=== PATIENT | female | born 1985 | race African-American/Black ===

== ENCOUNTER 2019-10-06 06:17 | Inpatient (IN) | payer OTHER ==
[2019-10-06] MEDS ORDERED: ELECTROLYTE-148 SOLN 500 ML IV SCH (07:00)
[2019-10-06] MEDS ORDERED: CITRIC ACID/SODIUM CITRATE 30 ML UNIT-DOSE CUP PO ONE (07:00)
[2019-10-06 07:16] VITALS: BMI 34.1
[2019-10-06] MEDS ORDERED: PROPOFOL 20 ML ONE (07:54)
[2019-10-06] MEDS ORDERED: morphine SULFATE/PF 0.5 MG/ML (2cc Syringe - QUVA) ONE (07:54)
[2019-10-06] MEDS ORDERED: ceFAZolin SODIUM 1 GM VIAL ONE (08:26)
[2019-10-06] MEDS ORDERED: ELECTROLYTE-148 SOLN 500 ML IV ONE (09:28)
[2019-10-06] MEDS ORDERED: OXYTOCIN 20 UNITS in 0.9% NS 20 UNIT/1,000 ML INFUS.BAG IV ONE (09:28)
[2019-10-06] MEDS ORDERED: ELECTROLYTE-148 SOLN 1,000 ML IV SCH (09:30)
[2019-10-06] MEDS: OXYTOCIN 20 UNITS in 0.9% NS 20 UNIT/1,000 ML INFUS.BAG IV SCH (09:30)
[2019-10-06] MEDS ORDERED: ONDANSETRON 4 MG/2 ML VIAL ONE (09:33)
[2019-10-06] MEDS ORDERED: DEXAMETHASONE SOD PHOSPHATE 4 MG/1 ML VIAL ONE (09:34)
[2019-10-06] MEDS ORDERED: OXYTOCIN 10 UNITS/ML VIAL ONE (09:34)
--- NOTE | 2019-10-06 09:34 | HP ---
Past Medical History - Admission Chief Complaint: repeat c s x 3 History of Present Illness: none History Source: Patient Limitations to Obtaining History: No Limitations - Past Medical History MANAGER BAR: No: Alzheimer's, CVA, Dementia, Migraine, Multiple Sclerosis, Peripheral Neuropathy, Parkinson's, Seizure, Syncope, TIA, Vertigo, Other Cardiovascular: No: AFIB, Aneurysm, Aortic Insufficiency, Aortic Stenosis, CAD, CHF, Deep Vein Thrombosis, HTN, Hyperlipdemia, [place], Mitral Insufficiency, Mitral Stenosis, Murmur, Pulmonary Hypertension, Other Pulmonary: No: Asthma, Bronchitis, Cancer, COPD, O2 Dependent, Pneumonia, Previously Intubated, Pulmonary Embolus, Pulmonary Fibrosis, Sleep Apnea, Other Gastrointestinal: No: Ascites, Cancer, Constipation, Crohn's Disease, Diverticulitis, Diverticulosis, Esophageal Varices, Gastritis, GERD, GI Bleed, Hemorrhoids, Hiatal Hernia, Inflamatory Bowel Disease, Irritable Bowel Disease, Pancreatitis, Peptic Ulcer Disease, Ulcerative Colitis, Other Hepatobiliary: No: Cirrhosis, Cholelithiasis, Cholecystitis, Choledocholithiasis, Hepatitis A, Hepatitis B, Hepatitis C, Other Renal/: No: Renal Failure, Renal Inusuff, BPH, Cancer, Hematuria, Hemodialysis, Neurogenic Bladder, Renal Calculi, UTI, Other Reproductive: No: Ectopic , Endometriosis, Fibroids, PID, Polycystic Ovary Syndrome, Postmenopausal, Other ...: 3 ...Para: 2 ...Term: 2 ...Living Children: 2 ...EDC by Rebeka: 10/13/19 Heme/Onc: No: Anemia, B12 Deficiency, Bleeding Disorder, Cancer, Current Chemotherapy, Current Radiation Therapy, Hemochromatosis, Hypercoaguable State, Myeloproliferative Synd, Sickle Cell Disease, Sickle Cell Trait, Thrombocytopenia, Other Infectious Disease: No: AIDS, C-Diff, Herpes Zoster, HIV, MRSA, STD's, Tuberculosis, VREF, Other Psych: No: Addictions, Anxiety, Bipolar, Depression, Panic, Psychosis, Sc hizophrenia, Other Musculoskeletal: No: Bursitis, Chronic low back pain, Hemiparesis, Hemiplegia, Osteoarthritis, Paraplegia, Other Rheumatology: No: Fibromyalgia, Gout, Lupus, Rheumatoid Arthritis, Sarcoidosis, Vasculitis, Other ENT: No: Allergic Rhinitis, Sinusitis, Other Endocrine: No: Carnation's Disease, Randlett's Disease, Diabetes Insipidus, Diabetes Mellitus, Hyperparathyroidism, Hyperthyroidism, Hypothyroidism, Osteopenia, SIADH, Other Dermatology: No: Basal Cell, Cellulitis, Eczema, Melanoma, Psoriasis, Squamous Cell, Other - Past Surgical History Past Surgical History: Yes: Hx Myomectomy: No Hx Transabdominal Cerclage: No - Advance Directives Advance Directives: Yes: Living Will - Smoking History Smoking history: Never smoked Have you smoked in the past 12 months: No - Alcohol/Substance Use Hx Alcohol Use: No History of Substance Use: reports: None - Social History Usual Living Arrangement: Yes: With Significant Other Do you think of yourself as: Straight/Heterosexual ADL: Independent History of Recent Travel: No Home Medications - Allergies Allergies/Adverse Reactions: Allergies Allergy/AdvReac Type Severity Reaction Status Date / Time No Known Allergies Allergy Verified 10/06/19 06:49 - Home Medications Home Medications: Ambulatory Orders Albuterol Sulfate [Albuterol Sulfate Hfa] 8.5 gm IH PRN PRN 10/06/19 Ferrous Sulfate [Feosol] 325 mg PO DAILY 10/06/19 Pnv No.95/Ferrous Fum/Folic AC [ Vitamin Tablet] 1 each PO DAILY 10/06/19 Family Medical History Family History: Denies Review of Systems - Review of Systems Constitutional: reports: No Symptoms Eyes: reports: No Symptoms HENT: reports: No Symptoms Neck: reports: No Symptoms Cardiovascular: reports: No Symptoms Respiratory: reports: No Symptoms Gastrointestinal: reports: No Symptoms Genitourinary: reports: No Symptoms Breasts: reports: No Symptoms Reported Musculoskeletal: reports: No Symptoms Integumentary: reports: No Symptoms Neurological: reports: No Symptoms Endocrine: reports: No Symptoms Hematology/Lymphatic: reports: No Symptoms Psychiatric: reports: No Symptoms Physical Exam - Maternity Vital Signs: Vital Signs Temperature 99.2 F 10/06/19 07:09 Pulse Rate 88 10/06/19 07:09 Respiratory Rate 18 10/06/19 07:09 Blood Pressure 114/65 10/06/19 07:09 O2 Sat by Pulse Oximetry (%) Constitutional: Yes: Well Nourished, No Distress, Calm Eyes: Yes: WNL, Conjunctiva Clear, EOM Intact HENT: Yes: WNL, Atraumatic, Normocephalic Neck: Yes: WNL, Supple, Trachea Midline Cardiovascular: Yes: WNL, Regular Rate and Rhythm Lungs: Clear to auscultation Breast(s): Yes: WNL - Abdominal Exam/OB Fundal Height: 40 Number of Fetuses: Single Presentation: Vertex Contractions: Yes Regularity: Irregular Intensity: Unaware Monitor Mode: External Heart Rate Location: [facility] Accelerations: Uniform Decelerations: None - Vaginal Exam/OB Vaginal Bleeding: No Speculum Exam: No Dilatation (cm): 1 Effacement (%): 50 Amniotic Membrane Status: Intact Presentation: Vertex/Position Station: -3 - Physical Exam Musculoskeletal: Yes: WNL Extremities: Yes: WNL Edema: Yes Edema: LUE: 1+, RUE: 1+, LLE: 1+, RLE: 1+ Integumentary: Yes: WNL Deep Tendon Reflex Grade: Normal +2 ...Motor Strength: WNL Psychiatric: Yes: WNL, Alert, Oriented Hemorrhage Risk Assessment - Risk Factors Medium Risk Factors: Yes: Prior , uterine surgery,or multiple laparotomies High Risk Factors: Yes: None Risk Score: 1 Risk Level: Medium Risk Assessment/Plan for repeat c s x 3,
[2019-10-06] MEDS ORDERED: morphine SULFATE/PF 0.5 MG/ML (2cc Syringe - QUVA) EP ONE (09:38)
[2019-10-06] MEDS ORDERED: METHYLERGONOVINE MALEATE 0.2 MG/1 ML AMP IM PRN (09:39)
[2019-10-06] MEDS ORDERED: IBUPROFEN 800 MG/8 ML IJ IVPB PRN (09:39)
[2019-10-06] MEDS ORDERED: oxyCODONE HCL 5 MG TABLET PO PRN ×2 (09:39)
[2019-10-06] MEDS ORDERED: DEXAMETHASONE SOD PHOSPHATE 4 MG/1 ML VIAL IVPUSH ONE (09:39)
--- NOTE | 2019-10-06 09:39 | OP ---
Operative Note - Note: Operative Date: 10/06/19 Pre-Operative Diagnosis: repeat c s x 3 Operation: repeat lt c s x 3 Findings: no adhesions Post-Operative Diagnosis: Same as Pre-op Surgeon: Ortiz Asher Stem Assembler: Jerson Dorado Anesthesiologist/DRAMATIC READER: Jeanette Camacho MD Anesthesia: Spinal Estimated Blood Loss (mls): 600 (no complications ) Operative Report Dictated: Yes
[2019-10-06] MEDS: ONDANSETRON 4 MG/2 ML VIAL IVPUSH PRN ×2 (09:40→15:53)
[2019-10-06] MEDS ORDERED: METOCLOPRAMIDE HCL INJECTION 10 MG/2 ML VIAL ONE (10:32)
[2019-10-06] MEDS ORDERED: METOCLOPRAMIDE HCL INJECTION 10 MG/2 ML VIAL IVPUSH ONE (10:37)
[2019-10-06] MEDS: PRENATAL VITAMINS W/ FOLIC ACID TABLET (FP) PO SCH (12:25)
[2019-10-06] MEDS ORDERED: SENNOSIDES/DOCUSATE COMBO (SENNA PLUS) TABLET (UD) PO PRN (22:00)
--- NOTE | 2019-10-07 08:29 | PN ---
Progress Note (short form) - Note Progress Note: Anesthesia postop note 33 y/o F s/p spinal anesthesia/ duramorph for repeat section. POD#1, vss, aaox3, pain well controlled, no complaints. No anesthesia complications.
[2019-10-07 09:07] LABS: BASO % 0.3 % (0-2.0); HEMATOCRIT 33.4 % (32.4-45.2); HEMOGLOBIN 11.1 GM/dL (10.7-15.3); LYMPH % 11.4 % (8-40); MCH 31.1 pg (25.7-33.7); MCHC 33.2 g/dl (32.0-36.0); MEAN CELL VOLUME 93.6 fl (80-96); MEAN PLT VOLUME 10.4 fl (7.5-11.1); MONO % 8.4 % (3.8-10.2); NEUT % 78.9 % (42.8-82.8); PLATELET COUNT 143 K/MM3 (134-434); RBC 3.56 M/mm3 (3.60-5.2); RDW 14.6 % (11.6-15.6); WHITE BLOOD COUNT 10.9 K/mm3 (4.0-10.0)
[2019-10-07] MEDS: PRENATAL VITAMINS W/ FOLIC ACID TABLET (FP) PO SCH (09:38)
[2019-10-07] MEDS ORDERED: BISACODYL 10 MG SUPP.RECT RC PRN (09:39)
[2019-10-07] MEDS: ACETAMINOPHEN 325 MG TABLET (FP) PO PRN ×2 (09:41→15:01)
[2019-10-07] MEDS: IBUPROFEN 600 MG TABLET (FP) PO PRN ×2 (09:42→15:00)
--- NOTE | 2019-10-07 10:17 | PN ---
Post Progress Note Post Day: 1 Type of Delivery: Repeat C/S Vital Signs: Vital Signs Temperature 98.2 F 10/07/19 05:58 Pulse Rate 90 10/07/19 05:58 Respiratory Rate 20 10/07/19 05:59 Blood Pressure 109/69 10/07/19 05:58 O2 Sat by Pulse Oximetry (%) 97 10/06/19 14:00 Breast Exam: Yes: Soft Uterus: Yes: Fundus Firm, Fundus below umbilicus, Non-tender Incision: Yes: Dressing dry and intact, Sutures intact Abdomen/GI: Yes: Abdomen soft, Passing flatus, Tolerating PO Lochia: Yes: Serosa Lochia, amount: Small Extremities: Yes: Calves non-tender Perineum: Yes: Intact Activity: Ambulating (doing well, dc pt home tomorrow ) - Labs Labs: CBC WBC 10.9 K/mm3 (4.0-10.0) H 10/07/19 07:55 RBC 3.56 M/mm3 (3.60-5.2) L 10/07/19 07:55 Hgb 11.1 GM/dL (10.7-15.3) 10/07/19 07:55 Hct 33.4 % (32.4-45.2) 10/07/19 07:55 MCV 93.6 fl (80-96) 10/07/19 07:55 MCH 31.1 pg (25.7-33.7) 10/07/19 07:55 MCHC 33.2 g/dl (32.0-36.0) 10/07/19 07:55 RDW 14.6 % (11.6-15.6) 10/07/19 07:55 Plt Count 143 K/MM3 (134-434) 10/07/19 07:55 MPV 10.4 fl (7.5-11.1) 10/07/19 07:55 Absolute Neuts (auto) 8.6 K/mm3 (1.5-8.0) H 10/07/19 07:55 Neutrophils % 78.9 % (42.8-82.8) 10/07/19 07:55 Lymphocytes % 11.4 % (8-40) D 10/07/19 07:55 Monocytes % 8.4 % (3.8-10.2) 10/07/19 07:55 Eosinophils % 1.0 % (0-4.5) 10/07/19 07:55 Basophils % 0.3 % (0-2.0) 10/07/19 07:55 Nucleated RBC % 0 % (0-0) 10/07/19 07:55
--- NOTE | 2019-10-07 10:20 | DS ---
Physical Exam-POURER OFF Vital Signs: Vital Signs Temperature 98.2 F 10/07/19 05:58 Pulse Rate 90 10/07/19 05:58 Respiratory Rate 20 10/07/19 05:59 Blood Pressure 109/69 10/07/19 05:58 O2 Sat by Pulse Oximetry (%) 97 10/06/19 14:00 Constitutional: Yes: Well Nourished, No Distress, Calm Eyes: Yes: WNL, Conjunctiva Clear, EOM Intact HENT: Yes: WNL, Atraumatic, Normocephalic Neck: Yes: WNL, Supple, Trachea Midline Cardiovascular: Yes: WNL, Regular Rate and Rhythm Respiratory: Yes: WNL, Regular, CTA Bilaterally Gastrointestinal: Yes: WNL, Normal Bowel Sounds, Soft ...Rectal Exam: Yes: WNL Renal/: Yes: WNL Pelvis: Yes: WNL External Genitalia: Yes: Normal Internal Exam Deferred: Yes Vaginal Exam: Yes: Normal Cervix: Yes: Normal Uterus: Yes: Normal Adnexa: Normal: Bilateral ....Post : Yes: Uterus firm, Uterus non-tender Breast(s): Yes: WNL Musculoskeletal: Yes: WNL Extremities: Yes: WNL Integumentary: Yes: WNL Wound/Incision: Yes: Clean/Dry, Well Approximated Neurological: Yes: WNL, Alert, Oriented ...Motor Strength: WNL Psychiatric: Yes: WNL, Alert, Oriented Labs: CBC, BMP 10/07/19 07:55 Delivery - Delivery Section: Repeat Type of Anesthesia: Spinal Episiotomy/Laceration: None EBL (cc): 600 Delivery, Single - Stages of Labor Date of Delivery: 10/06/19 Time of Delivery: 08:36 Time Placenta Delivered: 08:37 - Condition of Infant Freight Sales Broker/Marketing Communication Manager Present: Yes Name: Anny Tomas Infant Gender: Male Weight: 3.572 kg Position: OA Total Hours ROM (Hrs/Mins): 1M - 1 Minute Total Score: 9 5 Minutes Total Score: 9 - Feeding Plan Initial Plan: Elected not to breastfeed exclusively throughout hospitalization Discharge Summary Problems reviewed: Yes Reason For Visit: C SECTION Procedures: Principal: repeat c s Other Procedures: none Hospital Course: uneventful Health Concerns: none Plan of Treatment: oob Condition: Good - Instructions Diet, Activity, Other Instructions: Physical activity Resume your normal everyday activity as tolerated no heavy lifting or exercise until seen by your surgeon. You may walk unlimited matty of and climb stairs. You may resume driving the car when you feel safe and comfortable behind the wheel. No sexual activity as instructed. Wound care If you have a bandage, leave it on, and keep dry for 48-72 hours. After that time discard the outer bandage. If they are tapes on the skin under the out of bandage leave them in place. They will peel off in the next 7 to 10 days. Do Not Peel them off. You may shower the day after surgery. If there are tapes present on the skin, you may shower over them. Diet There are no dietary restrictions. Eat healthy, high-fiber foods. Drink 6 to 8 glasses of liquid each day. This will assist in keeping your bowels are regular. Pain management You may take Tylenol or acetaminophen or Ibuprofen (for example, Motrin, Advil etc.) from my pain prescription medication is ordered should be taken as prescribed for moderate to severe pain. Call MD for any of the following: f/u with dr robles in 2 weks Severe pain not relieved by medication Fever of 101 or higher Excessive bleeding or drainage on dressing Inability to urinate Disposition: HOME - Home Medications Comprehensive Discharge Medication List: Ambulatory Orders Albuterol Sulfate [Albuterol Sulfate Hfa] 8.5 gm IH PRN PRN 10/06/19 Ferrous Sulfate [Feosol] 325 mg PO DAILY 10/06/19 Pnv No.95/Ferrous Fum/Folic AC [ Vitamin Tablet] 1 each PO DAILY 10/06/19 Prescription Drug Monitoring Program (I-STOP) results: I-STOP reviewed and no issues identified
[2019-10-07] MEDS: ELECTROLYTE-148 SOLN 1,000 ML IV SCH (11:03)
[2019-10-07] MEDS: OXYTOCIN 20 UNITS in 0.9% NS 20 UNIT/1,000 ML INFUS.BAG IV SCH (11:03)
[2019-10-07] MEDS: SIMETHICONE 80 MG TAB.CHEW (FP) PO PRN ×2 (12:08→22:22)
--- NOTE | 2019-10-07 12:42 | OP ---
DATE OF OPERATION: 10/06/2019 PREOPERATIVE DIAGNOSIS: Repeat low transverse section x3. POSTOPERATIVE DIAGNOSIS: Repeat low transverse section x3. PROCEDURE: Repeat low transverse section. SURGEON: Ortiz Asher MD LIFE INSURANCE SPECIALIST: KATHERINE Medrano ANESTHESIOLOGIST: MONY Toth ANESTHESIA: Spinal anesthesia. BLOOD LOSS: About 600 mL. INDICATION: A 33-year-old female patient 39 weeks with a history of a short cervix and in the past 3 pregnancies the patient has been treated with a progesterone IM injection throughout the . So, patient has been monitored with a short cervix during the . The patient finally made it to 39 weeks, so is taken to the OR for repeat low transverse section. PROCEDURE: So, patient was taken to the OR, placed on the operating table in the supine position after spinal anesthesia was obtained. The patient's abdomen and pelvis were prepped and draped in the usual sterile manner. Pfannenstiel incision was made. Incision was made through skin, subcutaneous tissue until the fascia was nicked in the midline. The fascia was extended bilaterally. Intraperitoneal cavity was entered. No adhesion was encountered. No bladder flap was created and the low transverse segment was entered. Baby delivered from the LOP position. Baby was handed off to stone grader after umbilical cord doubly clamped and cut. Cord blood gas obtained. Placenta removed. Uterus closed in single layer, first layer Biosyn interlocking suture and good hemostasis. Both gutters cleaned and no complications. Both ovaries, fallopian tubes, uterus within normal limits. Patient tolerated procedure well, draining clear urine. Peritoneum was closed. Fascia was closed. Skin was closed. Transferred to recovery room in stable condition. MD SUKUMAR PURVIS/[id number]
[2019-10-08] MEDS: ACETAMINOPHEN 325 MG TABLET (FP) PO PRN ×2 (04:58→09:38)
[2019-10-08] MEDS: SIMETHICONE 80 MG TAB.CHEW (FP) PO PRN (04:58)
[2019-10-08] MEDS: IBUPROFEN 600 MG TABLET (FP) PO PRN ×2 (04:59→09:38)
--- NOTE | 2019-10-08 08:29 | PN ---
Post Progress Note Post Day: 2 Type of Delivery: Repeat C/S Vital Signs: Vital Signs Temperature 98.2 F 10/07/19 21:19 Pulse Rate 86 10/07/19 21:19 Respiratory Rate 20 10/07/19 21:19 Blood Pressure 105/60 10/07/19 21:19 O2 Sat by Pulse Oximetry (%) 97 10/06/19 14:00 Breast Exam: Yes: Soft Uterus: Yes: Fundus Firm, Fundus below umbilicus, Non-tender Incision: Yes: Dressing dry and intact, Sutures intact Abdomen/GI: Yes: Abdomen soft, Passing flatus Lochia: Yes: Serosa Lochia, amount: Small Extremities: Yes: Calves non-tender Perineum: Yes: Intact Activity: Ambulating - Labs Labs: CBC WBC 10.9 K/mm3 (4.0-10.0) H 10/07/19 07:55 RBC 3.56 M/mm3 (3.60-5.2) L 10/07/19 07:55 Hgb 11.1 GM/dL (10.7-15.3) 10/07/19 07:55 Hct 33.4 % (32.4-45.2) 10/07/19 07:55 MCV 93.6 fl (80-96) 10/07/19 07:55 MCH 31.1 pg (25.7-33.7) 10/07/19 07:55 MCHC 33.2 g/dl (32.0-36.0) 10/07/19 07:55 RDW 14.6 % (11.6-15.6) 10/07/19 07:55 Plt Count 143 K/MM3 (134-434) 10/07/19 07:55 MPV 10.4 fl (7.5-11.1) 10/07/19 07:55 Absolute Neuts (auto) 8.6 K/mm3 (1.5-8.0) H 10/07/19 07:55 Neutrophils % 78.9 % (42.8-82.8) 10/07/19 07:55 Lymphocytes % 11.4 % (8-40) D 10/07/19 07:55 Monocytes % 8.4 % (3.8-10.2) 10/07/19 07:55 Eosinophils % 1.0 % (0-4.5) 10/07/19 07:55 Basophils % 0.3 % (0-2.0) 10/07/19 07:55 Nucleated RBC % 0 % (0-0) 10/07/19 07:55 Assessment/Plan dc pt home today
[2019-10-08] MEDS: PRENATAL VITAMINS W/ FOLIC ACID TABLET (FP) PO SCH (10:33)
[2019-10-08] MEDS: ELECTROLYTE-148 SOLN 1,000 ML IV SCH (11:14)
[2019-10-08] MEDS: OXYTOCIN 20 UNITS in 0.9% NS 20 UNIT/1,000 ML INFUS.BAG IV SCH (11:14)
[2019-10-08 11:33] VITALS: BP 105/72; PULSE 84; TEMP 98.3
--- NOTE | 2019-10-11 17:11 | PATH ---
Surgical Pathology Report Patient Name: XIAO PATEL Med. Rec. #: [id number] /Age/Gender: 1985 (Age: 33) / F Account: [id number] Location: [facility] OBS/CROP PICKER Taken: 10/06/2019 Received: 10/07/2019 Reported: 10/11/2019 Physicians: Ortiz Asher MD Specimen(s) Received PLACENTA Clinical History 2013 and 2016 Final Diagnosis PLACENTA, SECTION: 399 G THIRD TRIMESTER PLACENTA WITH TRIVASCULAR UMBILICAL CORD AND UNREMARKABLE PLACENTAL MEMBRANES. Electronically Signed Cathy Holliday M.D. Gross Description The specimen is received fresh labeled placenta and is a 399 gram, 18.0 x 15.5 x 2.5 cm. placenta with attached membranes and umbilical cord. The attached membranes are power, translucent with focal opacities and insert marginally. The umbilical cord measures 31 cm. in length and averages 1.1 cm. in diameter. The cord inserts eccentrically, 4.5 cm. to the nearest margin. No true knots or strictures are identified. Cut surface of the umbilical cord reveals 3 vessels. The surface is kendall-blue with minimal fibrin deposition and appropriate caliber vessels. The maternal surface is red-brown with focal defects. Sectioning reveals red-brown, spongy parenchyma. No lesions are identified. Piece Meat Trimmer sections are submitted in three cassettes as follows: 1- membrane rolls and umbilical cord; 2-3- full thickness sections of placenta. /10/08/2019 [facility]10/08/2019
== END 2019-10-08 11:15 | disposition home or self-care (01) | DRG 787 ==
LOC: JLDR 06:17 → J3W 12:11
PROVIDERS: ADMIT Obstetrics & Gynecology; ATTEND Obstetrics & Gynecology
PROC: 10D00Z1 Extraction of Products of Conception, Low, Open Approach (ICD-10-PCS; principal; 2019-10-06)
DX: O82 Encounter for cesarean delivery without indication (principal); O26.873 Cervical shortening, third trimester; O34.211 Maternal care for low transverse scar from previous cesarean delivery; Z3A.39 39 weeks gestation of pregnancy; Z37.0 Single live birth
CPT/HCPCS: 36415; 85025; 88307-TC

== ENCOUNTER 2019-10-13 17:05 | Emergency (ER) | payer OTHER ==
[2019-10-13 17:27] VITALS: TEMP 98.2; BMI 32.4
[2019-10-13] MEDS ORDERED: LACTATED RINGERS SOLUTION 1000 ML INFUS.BAG IV ONE (18:05)
[2019-10-13] MEDS ORDERED: ACETAMINOPHEN 1000 MG/100 ML VIAL (NON FORMULARY) IVPB ONE (18:05)
[2019-10-13] MEDS ORDERED: METOCLOPRAMIDE HCL INJECTION 10 MG/2 ML VIAL IVPUSH ONE (18:05)
--- NOTE | 2019-10-13 18:11 | PDOC ---
History of Present Illness - General Chief Complaint: Migraine Headache Stated Complaint: VAGINAL BLEED Time Seen by Provider: 10/13/19 17:34 - History of Present Illness Initial Comments: 10/13/19 17:58 33 year old female with a PMH of asthma presents 7 days after a with 5 days of right sided headache, neck pain, and b/l arm and leg swelling. She states the headache came on gradually, feels like pressure, is associated with phonophobia and photophobia. Has been crying and blowing her nose for emotional reasons, and denies unilateral lacrimation. Denies fever, chills. Also has noticed arms and legs look swollen since the delivery. Tried compression stockings for her legs. States the epidural was complicated by multiple tries and the anesthesiologist checked up on her afterwards which she thought was abnormal. PMH/PSH: as above Meds: ROS GENERAL/CONSTITUTIONAL: No fever or chills. No weakness. HEAD, EYES, EARS, NOSE AND THROAT: No change in vision. No ear pain or discharge. No sore throat. CARDIOVASCULAR: No chest pain or shortness of breath. b/l leg swelling RESPIRATORY: No cough, wheezing, or hemoptysis. GASTROINTESTINAL: No nausea, vomiting, diarrhea or constipation. GENITOURINARY: No dysuria, frequency, or change in urination. MUSCULOSKELETAL: right neck pain. SKIN: No rash NEUROLOGIC: headache. no vertigo ENDOCRINE: No increased thirst. No abnormal weight change HEMATOLOGIC/LYMPHATIC: No anemia, easy bleeding, or history of blood clots. ALLERGIC/IMMUNOLOGIC: No hives or skin allergy. PE GENERAL: Awake, alert, and fully oriented, in no acute distress HEAD: No signs of trauma, normocephalic, atraumatic EYES: PERRLA, EOMI, sclera anicteric, conjunctiva clear ENT: Auricles normal inspection, hearing grossly normal, nares patent, oropharynx clear without exudates. Moist mucosa NECK: Normal ROM, supple, no lymphadenopathy, JVD, or masses. right lateral neck muscles tender to palpation LUNGS: No distress, speaks full sentences, clear to auscultation bilaterally HEART: Regular rate and rhythm, normal S1 and S2, no murmurs, rubs or gallops, peripheral pulses normal and equal bilaterally. ABDOMEN: Soft, nontender, normoactive bowel sounds. No guarding, no rebound. No masses. Well-healing surgical incision EXTREMITIES : 1+ b/l LE pitting edema. no edema in arms. No clubbing or cyanosis. NEUROLOGICAL: Cranial nerves II through XII grossly intact. Normal speech, normal gait, no focal sensorimotor deficits SKIN: Warm, Dry, normal turgor, no rashes or lesions noted BACK: soft tissue swelling at epidural site without erythema. no bony tenderness Vital Signs Temp Pulse Resp BP Pulse Ox 98.2 F 59 L 16 125/69 100 10/13/19 17:19 10/13/19 17:19 10/13/19 17:19 10/13/19 17:19 10/13/19 17:19 MDM 3 year old female with a PMH of asthma presents 7 days after a with 5 days of right sided headache, neck pain, and b/l LE edema. Differential includes migrane, brain bleed, post- cardiomyopathy, pre-eclampsia, traumatic epidural resulting in a hematoma compressing on nerves -EKG -CXR -CT head -CT lumnar spine -CBC, CMP, mg, tsh, bnp, coags, UA/UC -tylenol 1000mg IV, reglan 10mg IV, benadryl 12.5mg IV -1000ml LR -POCUS ECHO 10/13/19 19:07 Signed out to night team Past History - Medical History Allergies/Adverse Reactions: Allergies Allergy/AdvReac Type Severity Reaction Status Date / Time No Known Allergies Allergy Verified 10/06/19 06:49 Home Medications: Ambulatory Orders Albuterol Sulfate [Albuterol Sulfate Hfa] 8.5 gm IH PRN PRN 10/06/19 Ferrous Sulfate [Feosol] 325 mg PO DAILY 10/06/19 Pnv No.95/Ferrous Fum/Folic AC [ Vitamin Tablet] 1 each PO DAILY 10/06/19 Asthma: Yes Cancer: No Cardiac Disorders: No COPD: No Diabetes: No HTN: No Seizures: No Thyroid Disease: No - Reproductive History Is Patient Now?: No - Immunization History Immunization Up to Date: Yes - Psycho-Social/Smoking History Smoking History: Never smoked Have you smoked in the past 12 months: No - Substance Abuse Hx (Audit-C & DAST Scrn) How often the patient has a drink containing alcohol: Never Score: In Men: 4 or > Positive; In Women: 3 or > Positive: 0 Screen Result (Pos requires Nsg. Audit-10AR): Negative In the last yr the pt used illegal drug/Rx for NonMed reason: No Score: Yes response is considered Positive: 0 Screen Result (Positive result requires Nsg. DAST-10): Negative *Physical Exam - Vital Signs Last Vital Signs Temp Pulse Resp BP Pulse Ox 98.2 F 59 L 16 125/69 100 10/13/19 17:19 10/13/19 17:19 10/13/19 17:19 10/13/19 17:19 10/13/19 17:19 ED Treatment Course - LABORATORY CBC & Chemistry Diagram: 10/13/19 18:41 10/13/19 18:41 Discharge - Discharge Information Problems reviewed: Yes Clinical Impression/Diagnosis: Status post section Edema Qualifiers: Edema type: unspecified Qualified Code(s): R60.9 - Edema, unspecified Headache Qualifiers: Headache type: unspecified Headache chronicity pattern: acute headache Intractability: not intractable Qualified Code(s): R51 - Headache Condition: Improved Disposition: HOME - Follow up/Referral Referrals: Ortiz Asher MD [Primary Care Provider] - - Patient Discharge Instructions Patient Printed Discharge Instructions: DI for Headache Additional Instructions: Today you were evaluated for a headache and swelling. Your CT scans and labs are all normal, but your magnesium was low so we gave you more. Your headache improved with Reglan and IV fluids. Your headache is likely related to your post-op period and will resolve over time. You need to see your STORE MERCH[employer] Dr. Asher as recommended for follow-up care. Take care not to do any heavy lifting or exertion to make sure your wound heals appropriately. Your swelling will go down with time as your body adjusts. If you experience worsening pain or swelling, worse headache, chest pain, shortness of breath, or any other new or concerning symptoms, please return to the emergency room. - Post Discharge Activity
[2019-10-13] MEDS ORDERED: METOCLOPRAMIDE HCL INJECTION 10 MG/2 ML VIAL ONE (19:07)
[2019-10-13] MEDS ORDERED: ACETAMINOPHEN INJECTION 100 ML IVPB ONE (19:08)
--- NOTE | 2019-10-13 19:15 | PDOC ---
Documentation entered by Steph Ross SCRIBE, acting as scribe for Michelle Herrera DO. Michelle Herrera DO: This documentation has been prepared by the deo, Steph Ross SCRIBE, under my direction and personally reviewed by me in its entirety. I confirm that the documentation accurately reflects all work, treatment, procedures, and medical decision making performed by me. Attending Attestation - Resident Resident Name: [email or web address] - ED Attending Attestation I have performed the following: I have examined & evaluated the patient, The case was reviewed & discussed with the resident, I agree w/resident's findings & plan, Exceptions are as noted - HPI HPI: 10/13/19 19:55 The patient is a 33-year-old female with a past medical history significant for asthma who presents to the emergency department with a headache. The patient is s/p 7 days ago, complicated with difficult epidural and multiple punctures. The patient presents with 5 days of constant, right-sided frontal headache that radiates down her right neck. The patient reports associated symptoms of right-sided imbalance, lower extremity weakness (R>L), upper and lower extremity swelling. The patient reports taking Tylenol, which was prescribed following the , for the headache without relief. The patient reports secondary to the pain she has difficulty sleeping and states due to the severity of the pain she cries often. The patient reports she hasnt tried any other medication because shes . The patient reports she used to get headaches in college, however, they would resolve after a while. Denies shortness of breath, chest pain, nausea, vomiting, diarrhea. Denies urinary symptoms or difficulty urinating. Denies back pain. Denies a history of migraines. - Physicial Exam PE: 10/13/19 19:57 Constitutional: +anasarca. Awake, alert, oriented. No acute distress. Head: Normocephalic. Atraumatic Eyes: PERRL. EOMI. Conjunctivae are not pale. ENT: Mucous membranes are moist and intact. Posterior pharynx without exudate or erythema. Uvula midline. Neck: Supple. Full ROM. No lymphadenopathy. Cardiovascular: +bradycardia. Regular rate. Regular rhythm. S1, S2 regular. Distal pulses are 2+ and symmetric. Pulmonary/Chest: No evidence of respiratory distress. Clear to auscultation bilaterally No wheezing, rales or rhonchi. Abdominal: soft, palpable uterus below the umbilicus, scar is healing well, dry, intact without drainage. There is no tenderness. No rebound, guarding or rigidity. Good bowel sounds. Back: No C T tenderness, +L spine tenderness about 1cm proximal to the LP site and epidural site, soft, no ecchymosis, erythema or drainage there. No CVA tenderness. Musculoskeletal: +edema of the arms and legs. Pulses intact, Radial/pedal pulses are intact and 2+ bilaterally. No cyanosis. No clubbing. Full range of motion in all extremities. No calf tenderness. Skin: Skin is warm and dry. No petechiae. No purpura. Neurological: Sensation intact, muscles strength intact to the upper extremity. Lower extremity muscle intact but ataxia to the left lower extremity. Alert and oriented to person, place, and time. decreased sensation to right face, rest of the Cranial nerves II-XII are grossly intact. Normal speech. Psychiatric: Good eye contact. Normal interaction, affect and behavior. - Medical Decision Making 10/13/19 18:53 A/P: 33yo female s/p c section a week ago with a R frontal headache, R neck pain, and leg weakness -pt states she has been taking tylenol without relief -states swelling all over -denies cp/sob -no cough -no nausea -low back pain -concern for pre-eclampsia, spinal dangelo, hematoma to lumbar spine, central venous thrombosis -c section incision is clean and dry 10/13/19 19:[address] neg lumbar ct neg cxr clear labs pending 10/13/19 20:55 low mag no elevated lft pt feeling much better will replace mag will discuss with LAUNDRY EQUIPMENT OPERATOR and then dc to home 10/13/19 21:08 resident discussed the case wt Dr. Asher who will follow the patient as an outpt 10/13/19 21:26 pt walking out an ataxic gait stable for dc to home Heart Score/ECG Review - ECG Intrepretation Comment:: 10/13/19 19:13 sinus binh at 52, nl axis, nl interval, t wve inversions v1-v2, abnl ekg Discharge - Discharge Information Problems reviewed: Yes Clinical Impression/Diagnosis: Status post section Edema Qualifiers: Edema type: unspecified Qualified Code(s): R60.9 - Edema, unspecified Headache Qualifiers: Headache type: unspecified Headache chronicity pattern: acute headache Intractability: not intractable Qualified Code(s): R51 - Headache Condition: Improved Disposition: HOME - Admission No - Follow up/Referral Referrals: Ortiz Asher MD [Primary Care Provider] - - Patient Discharge Instructions Patient Printed Discharge Instructions: DI for Headache Additional Instructions: Today you were evaluated for a headache and swelling. Your CT scans and labs are all normal, but your magnesium was low so we gave you more. Your headache improved with Reglan and IV fluids. Your headache is likely related to your post-op period and will resolve over time. You need to see your SOFTWARE QUALITY MANAGER Dr. Asher as recommended for follow-up care. Take care not to do any heavy lifting or exertion to make sure your wound heals appropriately. Your swelling will go down with time as your body adjusts. If you experience worsening pain or swelling, worse headache, chest pain, shortness of breath, or any other new or concerning symptoms, please return to the emergency room. - Post Discharge Activity
--- NOTE | 2019-10-13 19:25 | PDOC ---
*Physical Exam - Vital Signs Last Vital Signs Temp Pulse Resp BP Pulse Ox 98.2 F 59 L 16 125/69 100 10/13/19 17:19 10/13/19 17:19 10/13/19 17:19 10/13/19 17:19 10/13/19 17:19 ED Treatment Course - LABORATORY CBC & Chemistry Diagram: 10/13/19 18:41 10/13/19 18:41 - RADIOLOGY Radiograph Interpretation: 10/13/19 19:41 CT/LUMBAR SPINE CT W/O CONTRAST No intrathecal or intravenous contrast was administered. No prior imaging exam is available at this facility for direct comparison. No gross intraspinal mass lesion, hematoma or fluid collection is identified within the limitations of noncontrast CT. There is no discrete disc herniation. No canal stenosis is noted . There is maintenance of the lumbar lordosis. A minimal to mild lower lumbar dextrocurvature is seen. The disc spaces appear preserved. No facet arthropathy is seen. The perivertebral soft tissues demonstrate no obvious pathology. There is partial imaging of the uterus. Impression: No definite acute CT pathology is seen on noncontrast imaging. MRI evaluation is suggested given the provided clinical history. CT/HEAD CT WITHOUT CONTRAST Cranial CT without contrast Clinical information: headache Intravenous contrast was not administered. No prior imaging exam is available at this facility for direct comparison. No intraparenchymal hemorrhage is seen. There is no CT evidence of acute subarachnoid hemorrhage. Correlate clinically. No extra-axial fluid collection is noted. There is no obvious mass lesion on noncontrast imaging. No obvious infarct is noted. There is no definite abnormal intracranial attenuation. The ventricles and cisterns appear unremarkable. No calvarial defect is seen. The mastoid air cells and partially imaged paranasal sinuses demonstrate no opacification. Impression: No CT evidence of acute intracranial pathology. Medical Decision Making - Medical Decision Making 10/13/19 19:21 Signed out to me by Dr. Vasquez. PMH asthma, POD7 after with difficult epidural and multiple punctures Several days POWELL, neck pain, anasarca. Non-specific weakness in RLE but no fevers/chills. No chest pain, SOB, orthopnea. Possible PP cardiomyopathy, venous sinus thrombosis, epidural hematoma, pre- ecclampsia/HELLP. Checking labs, CT head/lumbar, possible ECHO. 10/13/19 19:22 Pending labs, CT read. Will disposition based on results. ECG sinus bradycardia, HR 52, QTc 403, TWI V2, no LALITHA/D. 10/13/19 19:43 CT head: no acute pathology CT lumbar" no acute pathology 10/13/19 20:00 Labs notable for: - CBC WNL - Coags WNL - UA 3+ blood / 2+ LE / trace protein - Mag 1.4, will replete - BNP 205 10/13/19 20:56 Patient re-evaluated, feeling much better, no neuro deficits, no photophobia. Exam unremarkable, no lower back pain, no neck pain. Getting IVF and Mag repletion. Contacting Dr. Asher for follow-up care and recommendation. If feeling better, can be discharged home with PROPELLER TESTER f/u. 10/13/19 21:[address] Asher, no concerning pathology, can be safely discharge home. Once IVF and Mag repleted safe for d/c home. Discharge - Discharge Information Problems reviewed: Yes Clinical Impression/Diagnosis: Status post section Edema Qualifiers: Edema type: unspecified Qualified Code(s): R60.9 - Edema, unspecified Headache Qualifiers: Headache type: unspecified Headache chronicity pattern: acute headache Intractability: not intractable Qualified Code(s): R51 - Headache Condition: Improved Disposition: HOME - Follow up/Referral Referrals: Ortiz Asher MD [Primary Care Provider] - - Patient Discharge Instructions Patient Printed Discharge Instructions: DI for Headache Additional Instructions: Today you were evaluated for a headache and swelling. Your CT scans and labs are all normal, but your magnesium was low so we gave you more. Your headache improved with Reglan and IV fluids. Your headache is likely related to your post-op period and will resolve over time. You need to see your PROPELLER TESTER Dr. Asher as recommended for follow-up care. Take care not to do any heavy lifting or exertion to make sure your wound heals appropriately. Your swelling will go down with time as your body adjusts. If you experience worsening pain or swelling, worse headache, chest pain, shortness of breath, or any other new or concerning symptoms, please return to the emergency room. - Post Discharge Activity
[2019-10-13 19:38] LABS: BASO % 1.6 % (0-2.0); EOS % 8.6 % (0-4.5); HEMATOCRIT 37.3 % (32.4-45.2); HEMOGLOBIN 12.4 GM/dL (10.7-15.3); LYMPH % 32.9 % (8-40); MCH 31.3 pg (25.7-33.7); MCHC 33.2 g/dl (32.0-36.0); MEAN CELL VOLUME 94.2 fl (80-96); MONO % 9.1 % (3.8-10.2); NEUT % 47.8 % (42.8-82.8); PLATELET COUNT 243 K/MM3 (134-434); RBC 3.96 M/mm3 (3.60-5.2); RDW 14.3 % (11.6-15.6); WHITE BLOOD COUNT 5.4 K/mm3 (4.0-10.0)
[2019-10-13 19:44] LABS: PROTHROMBIN TIME (PATIENT) 11.8 SEC (9.7-13.0)
[2019-10-13 19:47] LABS: ACTIVATED PTT 29.3 SECONDS (25.2-36.5)
[2019-10-13 20:06] LABS: EPI CELLS 11 /uL (0-25.1); HYALINE CASTS 3 /uL (0-3.1); URINE APPEARANCE CLEAR; URINE BACTERIA 183 /uL (0-1359); URINE BILIRUBIN NEGATIVE (NEGATIVE); URINE COLOR YELLOW; URINE GLUCOSE (UA) NEGATIVE (NEGATIVE); URINE KETONE NEGATIVE (NEGATIVE); URINE LEUK ESTERASE 2+ (NEGATIVE); URINE NITRITE NEGATIVE (NEGATIVE); URINE PROTEIN TRACE (NEGATIVE); URINE RBC 76 /uL (0-23.9); URINE UROBILINOGEN 0.2 mg/dL (0.2-1.0); URINE WBC 149 /uL (0-25.8)
[2019-10-13 20:33] LABS: ALBUMIN 2.9 g/dl (3.4-5.0); ALK PHOS 70 U/L (45-117); ANION GAP 10 MMOL/L (8-16); BILIRUBIN,TOTAL 0.3 mg/dL (0.2-1); BLOOD UREA NITROGEN 9.5 mg/dL (7-18); CALCIUM 9.4 mg/dL (8.5-10.1); CHLORIDE 103 mmol/L (98-107); CO2 26 mmol/L (21-32); CREATININE 0.8 mg/dL (0.55-1.3); GLUCOSE,RANDOM 76 mg/dL (74-106); MAGNESIUM 1.4 mg/dL (1.8-2.4); N-TERMINAL BNP 205.1 pg/ml (5-125); POTASSIUM 4.1 mmol/L (3.5-5.1); SGOT/AST 26 U/L (15-37); SGPT/ALT 27 U/L (13-61); SODIUM 139 mmol/L (136-145); TOT PROT 6.4 g/dl (6.4-8.2)
[2019-10-13] MEDS ORDERED: MAGNESIUM SULF 50% (8.12 MEQ/2 ML-1 GM VIAL) IVPB ONE (20:55)
[2019-10-13] MEDS ORDERED: MAGNESIUM SULFATE IN WATER 2 GM/50 ML IVPB IVPB ONE (21:00)
[2019-10-13 21:45] VITALS: BP 135/81; PULSE 58
--- NOTE | 2019-10-14 16:55 | EKG ---
Test Reason : Blood Pressure : / mmHG Vent. Rate : 052 BPM Atrial Rate : 052 BPM P-R Int : 142 ms QRS Dur : 072 ms QT Int : 434 ms P-R-T Axes : 040 062 045 degrees QTc Int : 403 ms POOR DATA QUALITY, INTERPRETATION MAY BE ADVERSELY AFFECTED SINUS BRADYCARDIA LOW VOLTAGE QRS BORDERLINE ECG NO PREVIOUS ECGS AVAILABLE Confirmed by KIRSTEN GUAJARDO MD ([id number]) on 10/14/2019 4:55:26 PM Referred By: Confirmed By:KIRSTEN GUAJARDO MD
== END 2019-10-13 21:45 | disposition home or self-care (01) ==
LOC: JER 17:05
PROC: 3E033NZ Introduction of Analgesics, Hypnotics, Sedatives into Peripheral Vein, Percutaneous Approach (ICD-10-PCS; principal; 2019-10-13)
PROC: 3E033GC Introduction of Other Therapeutic Substance into Peripheral Vein, Percutaneous Approach (ICD-10-PCS; 2019-10-13)
DX: R60.9 Edema, unspecified (principal); R51 Headache
CPT/HCPCS: 36415; 70450-TC; 71045-TC-FY; 72131-TC; 80053; 81003; 82550; 83735; 83880; 84443; 84484; 85025; 85610; 85730; 86850; 86900; 86901; 87086; 93005; 93010; 99285-25; J0131